=== PATIENT | female | born 1950 | race Caucasian/White ===

== ENCOUNTER 2018-10-02 13:49 | Emergency (ER) | payer MEDICARE, BC ==
[~2018-10-02] VITALS: Ht 154.9 cm; Wt 98.4 kg
[~2018-10-02 13:49] MED LIST: BP MED; BUPR150ER; CARI350; CITA20 PO; DIAZ10; DILT240; FURO40; HYDACE10B PO; HYDACE5 PO; IBUP600 PO; IBUP800 PO; LANS30EC; LORA1 PO; MECL25 PO; OXYACE10; OXYACE5T PO; PENVK500 PO; PROM25; PROM25 PO; ROSI4; RXHYDACE PO; ZOLP10; [UNRECOGNIZED DRUG - REMARK]
[2018-10-02 14:53] LABS: BASOPHILS ABSOLUTE AUTO 0.06 K/mm3 (0.00-0.23); BASOPHILS PERCENT AUTO 1 % (0-2); EOSINOPHILS ABSOLUTE AUTO 0.23 K/mm3 (0.00-0.68); EOSINOPHILS PERCENT AUTO 3 % (0-6); Hematocrit 42.4 % (33.0-51.0); Hemoglobin 13.2 g/dL (11.5-16.0); IMMATURE GRAN ABSOLUTE AUTO 0.02 K/mm3 (0.00-0.10); IMMATURE GRAN PERCENT AUTO 0 % (0-1); LYMPHOCYTES ABSOLUTE AUTO 1.93 K/mm3 (0.84-5.20); LYMPHOCYTES PERCENT AUTO 22 % (21-46); MONOCYTES ABSOLUTE AUTO 0.59 K/mm3 (0.16-1.47); MONOCYTES PERCENT AUTO 7 % (4-13); Mean Corpuscular HGB 30.9 pg (26.0-34.0); Mean Corpuscular HGB Conc 31.1 g/dL (31.5-36.5); Mean Corpuscular Volume 99 fL (80-100); Mean Platelet Volume 9.5 fL (9.1-12.4); NEUTROPHILS ABSOLUTE AUTO 6.16 K/mm3 (1.96-9.15); NEUTROPHILS PERCENT AUTO 68 % (41-73); Platelet Count 248 K/mm3 (150-400); RDW Coefficient Variation 12.8 % (11.7-14.2); Red Blood Cell Count 4.27 M/mm3 (3.80-5.20); White Blood Cell Count 8.99 K/mm3 (4.00-11.30)
[2018-10-02 14:59] LABS: Alanine Aminotransfer (ALT/SGP 15 U/L (12-78); Albumin, Blood 2.8 g/dL (3.4-5.0); Albumin/Globulin Ratio 0.7 (0.8-1.8); Alk Phos 56 U/L (50-136); Anion Gap 2 mmol/L (6-16); Aspartate Aminotrans (AST/SGOT 10 U/L (12-37); Bilirubin, Total 0.2 mg/dL (0.1-1.0); Blood Urea Nitrogen 11 mg/dL (8-24); Bun/Creatinine Ratio 15.5 (12.0-20.0); CO2, Blood 33 mmol/L (21-32); Calcium, Blood 7.6 mg/dL (8.5-10.1); Chloride, Blood 106 mmol/L (98-108); Creatinine, Blood 0.71 mg/dL (0.40-1.00); Globulin, Blood 3.8 g/dL (2.2-4.0); Glomerular Filtration Rate >60 (60-); Glucose, Blood 155 mg/dL (70-99); Potassium, Blood 3.6 mmol/L (3.5-5.5); Sodium, Blood 141 mmol/L (136-145); Total Protein, Blood 6.6 g/dL (6.4-8.2)
[2018-10-02] MEDS ORDERED: LORA.5 PO (15:17)
[2018-10-02] MEDS ORDERED: VENL75ER PO (15:18)
[2018-10-02] MEDS ORDERED: Oxcarbazepine300 MG PO (15:18)
[2018-10-02] MEDS ORDERED: DILT180 PO ×2 (15:19→15:20)
[2018-10-02] MEDS ORDERED: CYCL10 PO (15:19)
[2018-10-02] MEDS ORDERED: PANT40 PO (15:21)
[2018-10-02] MEDS ORDERED: ESTR2 PO (15:22)
[2018-10-02] MEDS ORDERED: AUSTEDO12 MG PO (15:22)
[2018-10-02] MEDS ORDERED: TRAZ150T57 PO (15:22)
[2018-10-02] MEDS ORDERED: ATOR10 PO (15:23)
[2018-10-02 15:45] LABS: Source, Urine Clean Catch
[2018-10-02 15:58] LABS: Bilirubin, Urine Neg (Neg); Blood, Urine Neg (Neg); Glucose Qualitative, Urine Neg (Neg); Ketones, Urine Neg (Neg); Leukocyte Esterase, Urine 1+ (Neg); Nitrite, Urine Pos (Neg); Protein, Urine Neg (Neg); Urobilinogen, Urine NORM (Normal)
[2018-10-02] MEDS ORDERED: LIDO700A20 TOP (16:07)
[2018-10-02] MEDS ORDERED: Cyclobenzaprine5 MG PO (16:07)
[2018-10-02] MEDS ORDERED: KETO10 PO (16:07)
[2018-10-02 16:12] LABS: Color, Urine Yellow (P-Yellow)
[2018-10-02 16:13] LABS: Appearance, Urine Hazy (Clear); Squamous Epithelial Cells Few /hpf (Few)
[2018-10-02 16:14] LABS: Bacteria Mod /hpf; Red Blood Cells, Urine Not Seen /hpf (0-2)
== END 2018-10-02 17:14 | disposition home or self-care (01) ==
LOC: ER 13:49
PROVIDERS: Physician Assistant
DX: S39.012A Strain of muscle, fascia and tendon of lower back, initial encounter (principal); K43.9 Ventral hernia without obstruction or gangrene; X58.XXXA Exposure to other specified factors, initial encounter; G43.909 Migraine, unspecified, not intractable, without status migrainosus; E11.9 Type 2 diabetes mellitus without complications; F41.9 Anxiety disorder, unspecified; I10 Essential (primary) hypertension; Z79.899 Other long term (current) drug therapy
CPT/HCPCS: 36415; 74176; 80053; 81001; 85025; 87077; 87086; 87186; 93005; 93010; 96374; 99284-25; J1885